=== PATIENT | male | born 2000 | race Two or more races ===

== ENCOUNTER 2023-04-01 02:40 | Emergency (ER) | payer OTHER ==
[~2023-04-01] VITALS: Ht 170.2 cm; Wt 59.0 kg
[2023-04-01] MEDS ORDERED: FAMOTIDINE40 MG PO (05:43)
[2023-04-01] MEDS ORDERED: MEDROL8 MG PO (05:43)
[2023-04-01] MEDS ORDERED: BENADRYL25 MG PO (05:43)
== END 2023-04-01 05:58 ==
LOC: ER 02:40
DX: L50.9 Urticaria, unspecified (principal)

== ENCOUNTER 2023-06-13 00:48 | Emergency (ER) | payer OTHER ==
[~2023-06-13] VITALS: Ht 167.6 cm; Wt 59.0 kg
[~2023-06-13 00:48] MED LIST: BENADRYL25 MG PO; FAMOTIDINE40 MG PO; MEDROL8 MG PO
[2023-06-13 02:51] LABS: HEMATOCRIT 43.4 % (39.0-48.0); MEAN CELL VOLUME 86.4 fL (80.0-100.00); MEAN CORPUSCULAR HEMOGLOBIN 29.9 pg (27.00-32.0); MEAN CORPUSCULAR HGB CONC 34.6 g/dl (32.0-36.0); PLATELET COUNT 157 K/uL (150-450); RED BLOOD COUNT 5.03 M/uL (4.00-6.00); RED CELL DISTRIBUTION WIDTH 12.8 % (11.5-14.5)
[2023-06-13 03:01] LABS: CALCIUM 9.1 mg/dL (8.5-10.1); CREATININE SERUM 0.9 mg/dL (0.70-1.30); GFR 103.67; POTASSIUM 3.35 mEq/L (3.5-5.1)
== END 2023-06-13 04:10 | disposition home or self-care (01) ==
LOC: ER 00:48
DX: R53.81 Other malaise (principal); Z20.822 Contact with and (suspected) exposure to COVID-19; Z91.040 Latex allergy status

== ENCOUNTER 2024-12-18 16:22 | Emergency (ER) | payer OTHER ==
[~2024-12-18] VITALS: Ht 170.2 cm; Wt 57.2 kg
[2024-12-18 16:34] VITALS: BP 133/77; O2SAT 98
[2024-12-18] MEDS ORDERED: CEFTRIAXONE SODIUM 1,000 MG VIAL IM ONE (19:15)
[2024-12-18] MEDS ORDERED: DEXAMETHASONE SODIUM PHOSPHATE 4 MG/ML VIAL IM ONE (19:15)
[2024-12-18] MEDS ORDERED: DEXAMETHASONE SODIUM PHOSPHATE 4 MG/ML VIAL ONE (19:34)
[2024-12-18] MEDS ORDERED: CEFTRIAXONE SODIUM 1,000 MG VIAL ONE (19:34)
[2024-12-18] MEDS ORDERED: LIDOCAINE HCL 1% 10ML VIAL ONE (19:34)
== END 2024-12-18 20:10 | disposition home or self-care (01) ==
LOC: ER 16:23
DX: J03.80 Acute tonsillitis due to other specified organisms (principal); Z91.040 Latex allergy status
CPT/HCPCS: 96372; 99282; J0696; J1100